=== PATIENT | male | born 1985 | race Caucasian/White ===

== ENCOUNTER 2024-04-02 00:13 | Emergency (ER) | payer MEDICARE, MEDICAID, SELFPAY ==
[2024-04-02 00:18] VITALS: BP 144/88; PULSE 79; TEMP 36.9; O2SAT 98; BMI 27.9
[2024-04-02] MEDS: FLUORESCEIN SODIUM 1 MG STRIP OP (00:54)
[2024-04-02] MEDS: TETRACAINE HCL 0.5% OP SOL 80 DROP/4 ML BOTTLE OP (00:55)
[2024-04-02] MEDS: ADACEL DIPH,PERTUSS(ACELL),TET VAC/PF 0.5 ML ADULT SYRINGE IM (01:07)
[2024-04-02] MEDS: ERYTHROMYCIN OP OINT 0.5% 1 GM TUBE OP (01:07)
--- NOTE | 2024-04-02 01:19 | ED_ITS ---
HPI HPI - General Adult General Chief complaint: Eye Problems Stated complaint: EYE PAIN, FOREIGN OBJECT Time Seen by Provider: 04/02/24 00:27 Source: patient Mode of arrival: walk-in Limitations: no limitations History of Present Illness HPI narrative: 39-year-old male to the emergency department chief complaint of foreign body in his left eye for the last 48 hours. Patient reports that he was in a garage where a friend had been doing some grinding. He believes that there was some metal dust blowing around. He reports that Monday he believes he got a foreign body in the left eye. He reports he has been vigorously irrigating and attempting to remove the foreign body at home throughout the day today. Denies any vision changes. Reports persistence of foreign body sensation in the left eye. He does not wear contacts. Last tetanus is unknown. Related Data Previous Rx's ?Medication ?Instructions ?Recorded erythromycin 5 mg/gram (0.5 %) eye 1 applic ophthalmic (eye) Q6H 5 04/02/24 ointment days #3.5 grams Allergies Allergy/AdvReac Type Severity Reaction Status Date / Time No Known Drug Allergies Allergy Verified 04/02/24 00:21 Opioid HPI Opioid Management Most Recent Opioid Data: No Data to Display Review of Systems ROS Status of ROS 10 or more systems reviewed and unremark able except as noted in history and below PFSH PFSH Social History Little interest or pleasure in doing things: not at all Feeling down, depressed, or hopeless: not at all Exam Narrative Exam Narrative: VITALS: I have reviewed the triage vital signs. GENERAL: Well developed, well appearing adult in no acute distress. NEURO: Alert and oriented. Moves all extremities. Face is symmetric and expressive. Left eye: Pupil equal round react, no hyphema or hypopyon. Conjunctive was injected. No German sign. There is a 1 mm circular lesion at 5:00 that appears to be a rust ring. No foreign body is appreciated. HENT: Normocephalic, atraumatic. Hearing is grossly intact. Nares grossly patent and without discharge. Mucous membranes moist. NECK: No JVD. Patient moves neck without restriction. SKIN: Warm and dry. Normal turgor. No rash or lesions appreciated. PSYCH: Mood, affect, and interaction is appropriate to the setting. Constitutional Vital Signs, click to edit/add: Last Vital Signs Temp 98.4 F 04/02/24 00:18 Pulse 79 04/02/24 00:18 Resp 18 04/02/24 00:18 BP 144/88 H 04/02/24 00:18 Pulse Ox 98 04/02/24 00:18 O2 Del Method Room Air 04/02/24 00:18 Course Vital Signs Vital signs: Vital Signs Temperature 98.4 F 04/02/24 00:18 Pulse Rate 79 04/02/24 00:18 Respiratory Rate 18 04/02/24 00:18 Blood Pressure 144/88 H 04/02/24 00:18 Pulse Oximetry 98 04/02/24 00:18 Oxygen Delivery Method Room Air 04/02/24 00:18 Temperature 98.4 F 04/02/24 00:18 Pulse Rate 79 04/02/24 00:18 Respiratory Rate 18 04/02/24 00:18 Blood Pressure 144/88 H 04/02/24 00:18 Pulse Oximetry 98 04/02/24 00:18 Oxygen Delivery Method Room Air 04/02/24 00:18 Medical Decision Making MDM Narrative Medical decision making narrative: Well-appearing 39-year-old male with persistent eye foreign body sensation. Vital stable, the patient is afebrile. There is a small area of abnormality visualized. No tactile foreign body with Q-tip. No foreign body appreciated magnified exam. Patient did a significant amount of irrigation attempts at removal at home. It does appear that he removed the metallic foreign body. I sascha thomas he has a small rust ring. He is given ophthalmology follow-up. Erythromycin. Tdap. Return precautions were discussed. All questions were answered. The patient was discharged home. Discharge Plan Discharge Chief Complaint: Eye Problems Clinical Impression: Corneal rust ring of left eye Patient Disposition: Home, Self-Care Time of Disposition Decision: 00:55 Condition: Good Mode of Transportation: Private Vehicle Prescriptions / Home Meds: New erythromycin 5 mg/gram (0.5 %) ointment 1 applic ophthalmic (eye) Q6H 5 Days Qty: 3.5 0RF Print Language: Palestinian Instructions: Eye Foreign Body (ED) Additional Instructions: Follow-up with eye doctor within the next 48 hours. Use over the topical antibiotic as prescribed. Return to the ED with vision changes, discharge, wo rsening redness or other new or concerning symptoms. Referrals: Errol Ritter MD [Physician] - 04/03/24 SURY MORTENSEN [Physician] - 04/03/24 ANGUS BEAL [Primary Care Provider] - 1 week Discharge Date/Time: 04/02/24 01:13
== END 2024-04-02 01:13 | disposition home or self-care (01) ==
PROVIDERS: Emergency Provider Student in an Organized Health Care Education/Training Program; PCP Family Medicine
DX: T15.02XA Foreign body in cornea, left eye, initial encounter (principal); W44.8XXA Other foreign body entering into or through a natural orifice, initial encounter; Z23 Encounter for immunization
CPT/HCPCS: 90471; 90715; 99283